=== PATIENT | female | born 1945 | race African-American/Black ===

== ENCOUNTER 2019-04-22 19:06 | Observation (INO) ==
[2019-04-22 19:31] LABS: Hematocrit 42.2 % (35.3-44.9); Mean Corpuscular HGB Conc 33.2 g/dL (31.6-35.5); Mean Corpuscular Hemoglobin 26.5 pg (28.0-33.3); Mean Corpuscular Volume 79.8 fL (83.0-100.0); Platelet Count 278 K/mcL (140-400); Red Blood Count 5.29 M/mcL (3.82-4.97); Red Cell Distribution Width 13.9 % (11.5-14.5); White Blood Count 11.4 K/mcL (4.3-11.1)
[2019-04-22 19:40] LABS: INR 0.9; Prothrombin Time 10.4 Seconds (9.4-12.1)
[2019-04-22 19:42] LABS: Activated Partial Thrombo Time 30.9 Seconds (26.0-36.0)
[2019-04-22 19:48] LABS: BUN/Creatinine Ratio 13 (6-26); Blood Urea Nitrogen 15 mg/dL (8-23); Calcium 10.4 mg/dL (8.6-10.3); Carbon Dioxide 26 mEq/L (23-29); Chloride 109 mEq/L (98-107); Glucose 144 mg/dL (70-105); Osmolality,Calculated 291 (280-300); Potassium 4.1 mEq/L (3.5-5.1); Sodium 139 mEq/L (136-145); eGFR For African Americans 58 (> 60); eGFR For Non-African Americans 47 (> 60)
[2019-04-22 19:49] LABS: Troponin I < 0.03 ng/mL (< 0.04)
[2019-04-22] MEDS ORDERED: Isovue-370 500 ML BOTTLE IVP ONE ×2 (20:08→20:34)
[2019-04-22] MEDS ORDERED: Aspirin 325 MG TABLET PO ONE (22:11)
[2019-04-22] MEDS ORDERED: Fluticasone Propionate Nasal 50 MCG/SPRAY BOTTLE NS PRN (23:27)
[2019-04-22] MEDS ORDERED: *HR* Dextrose 50 % in Water (Syg) 50 ML SYRINGE IVP PRN (23:28)
[2019-04-22] MEDS ORDERED: D5% in Water 1,000 ML IVC PRN (23:28)
[2019-04-22] MEDS ORDERED: Dextrose Gel 15 GM/37.5 ML TUBE PO PRN ×2 (23:28)
[2019-04-23 06:13] LABS: Hematocrit 39.5 % (35.3-44.9); Hemoglobin 12.9 g/dL (11.5-15.4); Mean Corpuscular HGB Conc 32.7 g/dL (31.6-35.5); Mean Corpuscular Hemoglobin 26.5 pg (28.0-33.3); Mean Corpuscular Volume 81.1 fL (83.0-100.0); Mean Platelet Volume 9.9 fL (9.4-12.4); Platelet Count 239 K/mcL (140-400); Red Blood Count 4.87 M/mcL (3.82-4.97); Red Cell Distribution Width 13.8 % (11.5-14.5); White Blood Count 9.3 K/mcL (4.3-11.1)
[2019-04-23 06:26] LABS: INR 0.9; Prothrombin Time 10.5 Seconds (9.4-12.1)
[2019-04-23] MEDS: *HR* Heparin 5,000 UNIT/ML VIAL SQ SCH ×2 (06:49→15:12)
[2019-04-23 07:06] LABS: Alanine Aminotransferase 13 Units/L (7-52); Albumin 4.1 g/dL (3.5-5.7); Albumin/Globulin Ratio 1.6 (1.1-2.2); Alkaline Phosphatase 74 Units/L (34-104); Aspartate Amino Transferase 10 Units/L (13-39); BUN/Creatinine Ratio 20 (6-26); Bilirubin,Total 0.3 mg/dL (0.3-1.0); Blood Urea Nitrogen 21 mg/dL (8-23); Calcium 10.1 mg/dL (8.6-10.3); Carbon Dioxide 22 mEq/L (23-29); Chloride 108 mEq/L (98-107); Chol/HDL Ratio 3.4 (0-4.9); Cholesterol 146 mg/dL (< 200); Globulin 2.6 g/dL (2.4-3.5); Glucose 124 mg/dL (70-105); HDL Cholesterol 43 mg/dL (40-59); LDL Cholesterol,Calculated 73 mg/dL (0-99); Osmolality,Calculated 292 (280-300); Potassium 3.6 mEq/L (3.5-5.1); Sodium 139 mEq/L (136-145); Total Protein 6.7 g/dL (6.4-8.9); Triglycerides 149 mg/dL (< 150); Troponin I < 0.03 ng/mL (< 0.04); eGFR For African Americans > 60 (> 60); eGFR For Non-African Americans 51 (> 60)
[2019-04-23] MEDS: Insulin LISPRO 300 UNITS/3 ML VIAL SQ SCH ×3 (08:41→17:53)
[2019-04-23 09:19] LABS: Estimated Average Glucose 160 mg/dl
[2019-04-23] MEDS ORDERED: Budesonide/Formoterol 160/4.5 1 PUFF INH IH SCH (10:00)
[2019-04-23 15:46] LABS: C-Reactive Protein < 5 mg/L (Less than 10)
[2019-04-23 16:08] VITALS: BP 151/68
[2019-04-23] MEDS ORDERED: Cholecalciferol (D-3) 1,000 UNIT (25MCG) TABLET PO SCH (21:00)
[2019-04-24] MEDS ORDERED: Lactobacillus 1 EACH CAP.SPRINK PO SCH (09:00)
[2019-04-24] MEDS ORDERED: NON-FORMULARY MEDICATION 1 EACH EACH (Krill/Om-3/Dha/Epa/Phospho/Ast [Krill Oil 1,000 Mg S PO SCH (09:00)
[2019-04-24] MEDS ORDERED: [UNRECOGNIZED DRUG - OTHER] PO SCH (09:00)
[2019-04-24] MEDS ORDERED: diazePAM 10 MG TABLET PO SCH (09:00)
== END 2019-04-23 18:28 | disposition home or self-care (01) ==
LOC: 3BNU 19:06 → EMEROOARM 19:06 → SUATTDRO 22:36 → 3BNU 23:15
PROVIDERS: ADMIT Internal Medicine; ATTEND Family Medicine